=== PATIENT | male | born 1985 | race Caucasian/White ===

== ENCOUNTER 2021-06-02 13:53 | Observation (INO) | payer OTHER, SELFPAY ==
--- NOTE | ~2021-06-02 | MR_ITS ---
EXAMINATION: MR hand RT wo con DATE: 06/03/2021 12:19 INDICATION: Cellulitis at the right hand TECHNIQUE: Magnetic resonance imaging (MRI) of the right hand was performed without intravenous contr ast to include the metacarpals and digits and which excludes the proximal carpal row. Coronal T1-weig hted FSE and T2-weighted FS FSE sequences were obtained before the patient terminated the study prior to obtaining the planned axial and sagittal sequences. COMPARISON: Radiograph dated 06/02/2021 FINDINGS: There is subcutaneous edema along the dorsal aspect of the ulnar side of the hand. No abscess. Bone a lignment is normal. Normal bone marrow signal throughout with no fracture, osteolysis or other pathol ogic marrow replacing process. Joint spaces appear normal. No joint effusions to suggest a septic art hritis. Intrinsic musculature of the hand appears unremarkable. Collateral ligament complex at the me tacarpophalangeal joints and interphalangeal joints are normal. The flexor and extensor tendons appea r normal however are suboptimally evaluated in the absence of axial and sagittal imaging. IMPRESSION: 1. No abscess, osteomyelitis or joint effusion to suggest septic arthritis. 2. Limited study which was terminated prematurely by the patient prior to obtaining axial or sagittal imaging. Reviewed, dictated and finalized at location B. IMPRESSION: 1. No abscess, osteomyelitis or joint effusion to suggest septic arthritis. 2. Limited study which was terminated prematurely by the patient prior to obtai no axial or sagittal imaging.
--- NOTE | ~2021-06-02 | XR_ITS ---
EXAMINATION: XR hand RT min 3V DATE: 06/02/2021 15:21 INDICATION: Right hand fifth digit injury with infection. TECHNIQUE: 3 views of right hand were obtained. COMPARISON: None. FINDINGS: Bone alignment is normal. No fracture. Joint spaces are well maintained. There is soft tiss ue swelling of the fifth digit. No radiopaque foreign body. IMPRESSION: 1. No evidence of osteomyelitis. Reviewed, dictated and finalized at location A.
[2021-06-02 13:55] VITALS: BP 149/80; PULSE 100; RESP 18; TEMP 37.3; O2SAT 100
--- NOTE | 2021-06-02 14:56 | ED.GENADULT ---
HPI - General Adult General Chief complaint: Unspecified Stated complaint: i think i have an infection Time Seen by Provider: 06/02/21 14:54 History of Present Illness HPI narrative: healthy 36 yo male presents [facility] ED c/o infection. He reports that he had a fishhook injury to his right little finger 2 days ago. Since that time he has developed pain and swelling in the finger, erythema tracking up the forearm, lymphadenopathy, chills, and body aches. No cough, congestion, nausea, vomiting, fever. Related Data Home Medications Medication Instructions Recorded Confirmed sertraline 50 mg PO DAILY 06/02/21 06/02/21 Allergies Allergy/AdvReac Type Severity Reaction Status Date / Time No Known Allergies Allergy Verified 06/02/21 15:35 Review of Systems Review of Systems: All systems reviewed & are unremarkable except as noted in HPI and below Cardiovascular: Cardiovascular: Denies chest pain Respiratory: Respiratory: Denies dyspnea Genitourinary: Genitourinary: Reports no additional male genitourinary complaints Musculoskeletal: Musculoskeletal: Reports myalgias Neurologic: Denies weakness PMFSH Social History Social History Smoking status: Never smoker Alcohol intake: current Drinks per week: 1 Substance use: never Gender identity (if verbalized by the patient): Male Spiritual care concerns: No Exam Const: General: no acute distress, alert and uncomfortable Nutritional Appearance: well nourished Orientation/consciousness: patient oriented x3 HENMT: Head: normal to inspection Neck: Neck: normal visual inspection Chest: Chest palpation & inspection: no tenderness Resp: Effort & Inspection: normal respiratory effort Auscultation: clear to auscultation bilaterally, no rales, no rhonchi and no wheezes Cardio: Jugular venous distension: no JVD Rate: regular rate Rhythm: regular rhythm Heart sounds: no murmurs GI: Inspection: non-distended GI Palp: Yes Soft to palpation and No Tenderness to palpation present (GI) Skin: Other: healing wound to distal right little finger with underlying fluctuance, surrounding erythema and tenderness. Erythematous band to mid forearm. Neuro: General: patient oriented x3 and moves all extremities Cognition (Neuro): normal cognition Speech: normal speech Motor exam (neuro): 5/5 motor strength present throughout Sensory Exam: normal sensation Extrem: General: no edema Right upper extremity: full ROM Psych: Appearance: well kempt Affect: normal affect Course Vital Signs Vital signs: Vital Signs Temperature 37.3 C 06/02/21 13:55 Pulse Rate 100 06/02/21 13:55 Respiratory Rate 18 06/02/21 13:55 Blood Pressure 149/80 H 06/02/21 13:55 Pulse Oximetry 100 06/02/21 13:55 Temperature 37.6 C 06/03/21 06:00 Pulse Rate 69 06/03/21 06:00 Respiratory Rate 20 06/03/21 06:00 Blood Pressure 134/55 L 06/03/21 06:00 Pulse Oximetry 99 06/03/21 06:00 Procedures Abscess I/D upper extremity: Date of Incision: 06/02/21 Side (if applicable): right (little finger) Local Anesthetic: lidocaine 1% Amount of anesthesia used (mL): 5 Technique: incised with #11 blade Amount of fluid expressed (mL): 1 Packing used?: none I&D Results: Other (turbid fluid) Medical Decision Making MDM Narrative Medical decision making narrative: I &D produced turbid fluid, no kayla pus. Exam concerning for serious infection. Not septic. Medical Records Medical records reviewed: Yes I reviewed the external patient's medical records. Vital Signs Vital Signs: Vital Signs Temperature 37.3 C 06/02/21 13:55 Pulse Rate 100 06/02/21 13:55 Respiratory Rate 18 06/02/21 13:55 Blood Pressure 149/80 H 06/02/21 13:55 Pulse Oximetry 100 06/02/21 13:55 Temperature 37.6 C 06/03/21 06:00 Pulse Rate 69 06/03/21 06:00 Respiratory Rate
[2021-06-02 15:32] VITALS: BP 119/71; PULSE 84; PULSE 85; RESP 15; O2SAT 100
[2021-06-02] MEDS: KETOROLAC 30 MG/ML VIAL (*BKC) IV PUSH (15:36)
[2021-06-02 16:05] LABS: Basophils Percent Auto 0.2 % (0.2-1.2); Eosinophils Percent Auto 0.2 % (0-4.4); Hematocrit 38.9 % (42.0-52.0); Hemoglobin 13.4 g/dL (14.0-18.0); Immature Granulocyte Absolute 0.09 K/mm3 (0.00-0.031); Immature Granulocyte Percent A 0.5 % (0-0.5); Lymphocytes Absolute Auto 0.75 K/mm3 (0.9-3.2); Mean Corpuscular HGB Conc 34.4 g/dl (32-36); Mean Corpuscular Hemoglobin 29.8 pg (26-34); Mean Corpuscular Volume 86.4 fl (80-100); Mean Platelet Volume 9.2 fl (7.4-10.4); Monocytes Absolute Auto 1.1 K/mm3 (0.1-0.6); Neutrophils Absolute Auto 16.5 K/mm3 (1.3-6.7); Neutrophils Percent Auto 89.1 % (45.5-73.1); Platelet Count Result 219 k/mm3 (150-375); Red Cell Distribution Width 12.6 % (11.5-14.5); White Blood Count 18.6 K/mm3 (4.5-10.0)
[2021-06-02 16:13] LABS: Lactic Acid Reflex 1.8 mmol/L (0.7-2.1)
[2021-06-02 16:21] LABS: Alanine Aminotransferase 22 U/L (4-50); Albumin Level 4.6 g/dL (3.5-5.1); Alkaline Phosphatase 65 U/L (38-126); Anion Gap 9 mmol/L (8-16); Aspartate Amino Transferase 29 U/L (17-59); Bilirubin,Total 0.8 mg/dL (0.2-1.3); Blood Urea Nitrogen 15 mg/dL (9-20); Calcium 9.6 mg/dL (8.4-10.2); Carbon Dioxide 25 mmol/L (22-30); Chloride 100 mmol/L (98-107); Estimated CRCL calculation 117 ml/min; Estimated Glomerular Filt Rate > 60; Glucose 104 mg/dL (65-110); Potassium 3.8 mmol/L (3.4-5.0); Sodium 134 mmol/L (137-145)
[2021-06-02 16:31] LABS: CRP 0.6 mg/dL (<1.0)
[2021-06-02 17:09] VITALS: BP 96/78; PULSE 74; RESP 20; O2SAT 100
[2021-06-02] MEDS: SODIUM CHLORIDE 0.9% IV 1,000 ML 999 ML IV CONT (17:12)
[2021-06-02] MEDS: MORPHINE SULFATE (*CRX) 2 MG/ML INJ IV PUSH (18:19)
[2021-06-02 19:24] VITALS: BP 120/73; PULSE 87; RESP 17; O2SAT 98
--- NOTE | 2021-06-02 19:48 | PM.IMHP ---
H&P: HPI History of Present Illness Date/Time: 06/02/21 19:48 Chief Complaint: Cellulitis of the hand Narrative: This is a 36 with no significant past medical history patient presented to the emergency room due to body aches chills patient had a fishhook injury to her right little finger 2 days prior to presentation to emergency room and he did not think much of it however as the hours progress he started feeling ill describes it as cold-like symptoms having muscular pain in chills and red lines tracking up his forearm on the right side swelling and pain of the 5th little finger of the right hand. Preliminary workup was significant for leukocytosis of 18,000. Hand x-ray did not show fractures. Review of Systems Review of Systems: Right little finger swelling and pain after fishhook injury Constitutional: Constitutional: Reports chills, Denies fatigue, Reports fever(s) and Reports malaise Eyes: Eyes: Denies change in vision ENT: Denies dysphagia, Denies nasal congestion, Denies nasal discharge, Denies nasal obstruction and Denies odynophagia Cardiovascular: Cardiovascular: Denies chest pain Respiratory: Respiratory: Denies cough Gastrointestinal: Gastrointestinal: Denies abdominal pain, Denies nausea and Denies vomiting Genitourinary: Genitourinary: Reports no additional male genitourinary complaints Musculoskeletal: Musculoskeletal: Reports arthralgias (Right little finger after fishhook injury) Integumentary/Breasts: Skin/Breast: Reports swelling, Reports change in pigmentation (Red is streaks up his forearm), Reports erythema and Reports skin swelling Neurologic: Reports system reviewed and no additional complaints, except as documented Psychiatric: Psychiatric: Reports no additional psychiatric complaints Endocrine: Endocrine: Reports no additional endocrine complaints Hematologic/Lymphatic: Hematologic/Lymphatic: Reports no additional hematologic/lymphatic complaints Allergic/Immunologic: Allergic/Immunologic: Reports no additional allergic/immunologic complaints PMFSH Social History Social History Gender identity (if verbalized by the patient): Male Meds Home Medications and Allergies Home Medications Medication Instructions Recorded Confirmed Type sertraline 50 mg PO DAILY 06/02/21 06/02/21 History Allergies Allergy/AdvReac Type Severity Reaction Status Date / Time No Known Allergies Allergy Verified 06/02/21 15:35 Vital Signs Vital Signs - 24 hr 06/02/21 13:55 06/02/21 15:32 06/02/21 17:09 Temperature 99.1 F Pulse Rate 100 85 74 Respiratory Rate 18 15 20 Blood Pressure 149/80 H 119/71 96/78 L Pulse Oximetry 100 100 100 06/02/21 19:24 Temperature Pulse Rate 87 Respiratory Rate 17 Blood Pressure 120/73 Pulse Oximetry 98 Exam Narrative: Patient is laying in bed Const: General: cooperative, comfortable, no acute distress, well developed, alert, awake and other (Well-appearing) Nutritional Appearance: average body habitus and well nourished Orientation/consciousness: patient oriented x3 HENMT: Head: normal to inspection, normocephalic and atraumatic Ears: hearing grossly normal bilaterally General nose exam: Normal external nose present Face and sinus: normal facial exam Mouth: Yes Normal oral and palatal mucosa present Eyes: General: appearance normal, both eyes and all related structures Alignment and Position: alignment normal Sclera: sclerae normal Pupils: Equal, round and reactive pupils present EOM: EOMs intact bilaterally Neck: Neck: normal visual inspection, full ROM, no lymphadenopathy, supple and no JVD Thyroid: thyroid normal Lymphatic: no lymphadenopathy noted Resp: Effort & Inspection: normal respiratory effort and able to speak in complete sentences Auscultation: clear to auscultation bilaterally Cardio: Jugular venous distension: no JVD Rate: regular rate Rhythm: regular rhythm Heart so
--- NOTE | 2021-06-02 19:55 | ADMGEN ---
This patient, Pranav Wu, was admitted to [facility] Surg Room 321-02. Patient/family oriented to hospital policies and general routines including ID bracelet, bed and alarms, visiting hours, pain management, procedures, bathroom and other care routines, personal items, smoking policy, room service/diet, and visiting hours. Information on how to activate the Rapid Response Team has been discussed. Patient/Family are encouraged to report perceived risks to care and to ask questions if they do not understand what they are told or what they should do.
[2021-06-02 22:00] VITALS: BP 128/76; PULSE 83; RESP 18; TEMP 37.9; O2SAT 99
[2021-06-02] MEDS: SODIUM CHLORIDE 0.9% IV 1,000 ML 125 ML IV CONT (22:09)
[2021-06-03] MEDS: KETOROLAC 15 MG/ML VIAL (*BKC) IV PUSH ×2 (01:10→13:31)
[2021-06-03] MEDS: ACETAMINOPHEN 500 MG TABLET 1000 MG PO (05:43)
[2021-06-03 06:00] VITALS: BP 134/55; PULSE 69; RESP 20; TEMP 37.6; O2SAT 99
[2021-06-03] MEDS: SODIUM CHLORIDE 0.9% IV 1,000 ML 125 ML IV CONT (07:29)
--- NOTE | 2021-06-03 08:49 | PM.IMPN ---
Progress Note: A&P Assessment and Plan (1) Abscess of right little finger: Code(s): L02.511 - Cutaneous abscess of right hand Status: Acute Assessment and Plan: Secondary to injury in which a fishhook pierced his skin into his right 5th digit S/p I&D in the ED which yielded turbid fluid, no pus. X-ray showed normal bone alignment and joints with soft tissue swelling of 5th digit, no evidence of osteomyelitis. MRI right hand is pending Consult to plastic surgeon Dr. Cagle. Input is appreciated Continue IV Ancef. Add Vancomycin Wound cultures pending from I&D Blood cultures pending Analgesics available as needed. He was febrile with Tmax 100.2. Fever and leukocytosis improving. Increased CRP. Tetanus booster and tetanus immune globulin ordered. His last vaccine was unknown. (2) Cellulitis of finger of right hand: Code(s): L03.011 - Cellulitis of right finger Status: Acute Assessment and Plan: See above. Subjective Date/time seen: 06/03/21 08:49 Interval history: Date of service: 06/03/2021 Pranav Wu is a healthy 36-year-old male who is seen in follow-up for abscess of the right 5th digit after an injury with a fishhook. He is feeling a lot better today. He had a very bad headache last night, some nausea, and just generally feeling unwell. This has all improved today. No fevers or chills. Continues to endorse pain in the right 5th digit all the way up the forearm extending to the elbow. He noted that there was some purple streaking going up his arm prior to presentation this has gone away. He denies nausea, vomiting, dizziness, lightheadedness, abdominal pain. No further fevers or chills. Denies muscle pain or body aches. No shortness of breath. No chest pain or palpitations. He is NPO today but had been eating and drinking well prior. He has no other concerns at this time. Review of Systems Review of Systems: All systems reviewed & are unremarkable except as noted in HPI and below Exam Narrative: Mr. Wu is a well-nourished, well-appearing 36-year-old male who is lying semi recumbent in bed. He appears comfortable and is in NARD. Neuro: awake, alert and oriented x4, speech clear, no focal neuro deficits noted HEENMT: normocephalic, atraumatic, EOMI, sclerae anicteric, moist oral mucosa Neck: supple, no lymphadenopathy Respiratory: clear to auscultation bilaterally, nonlabored breathing Cardio: regular rate, regular rhythm with S1-S2 Abdomen: nondistended, normoactive bowel sounds, soft, nontender to palpation Extremities: Right 5th digit is wrapped with dressing c/d/i. Right hand is minimally swollen and warm to palpation. Erythema on the lateral aspect of the hand with streaking up the lateral forearm to about 3[address] the elbow. He is able to make a fist, though unable to bend the 5th digit due to dressing and pain. Neurovascularly intact. Brisk capillary refill of bilateral upper extremities. Bilateral lower extremities no edema, erythema, or tenderness to palpation. DP pulses 2+ bilaterally Skin: Warm and slightly damp Psych: appropriate mood and affect, judgment and insight intact Objective Data Vital Signs Vital Signs: Vital Signs - 24 hr 06/02/21 13:55 06/02/21 15:32 06/02/21 17:09 Temperature 99.1 F Pulse Rate 100 85 74 Respiratory Rate 18 15 20 Blood Pressure 149/80 H 119/71 96/78 L Pulse Oximetry 100 100 100 06/02/21 19:24 06/02/21 22:00 06/03/21 06:00 Temperature 100.2 F H 99.6 F Pulse Rate 87 83 69 Respiratory Rate 17 18 20 Blood Pressure 120/73 128/76 134/55 L Pulse Oximetry 98 99 99 Intake/Output Intake/Output: Intake & Output 05/31/21 06/01/21 06/02/21 06/03/21 23:59 23:59 23:59 23:59 Intake Total 1250 1000 Balance 1250 1000 Meds/Results Medications: Active Medications Generic Name Dose Route Start Last Admin Trade Name Freq PRN Reason Stop Dose Admin Acetaminophen
[2021-06-03] MEDS: SERTRALINE HCL 50 MG TABLET PO (09:03)
[2021-06-03 10:21] LABS: Hematocrit 34.2 % (42.0-52.0); Hemoglobin 11.4 g/dL (14.0-18.0); Mean Corpuscular HGB Conc 33.3 g/dl (32-36); Mean Corpuscular Hemoglobin 28.7 pg (26-34); Mean Corpuscular Volume 86.1 fl (80-100); Mean Platelet Volume 9.1 fl (7.4-10.4); Platelet Count Result 186 k/mm3 (150-375); Red Blood Count 3.97 M/mm3 (4.6-6.20); Red Cell Distribution Width 12.6 % (11.5-14.5); White Blood Count 16.4 K/mm3 (4.5-10.0)
[2021-06-03 10:43] LABS: Anion Gap 4 mmol/L (8-16); Blood Urea Nitrogen 14 mg/dL (9-20); Calcium 8.4 mg/dL (8.4-10.2); Carbon Dioxide 25 mmol/L (22-30); Chloride 106 mmol/L (98-107); Estimated CRCL calculation 117 ml/min; Estimated Glomerular Filt Rate > 60; Glucose 104 mg/dL (65-110); Potassium 3.6 mmol/L (3.4-5.0); Sodium 135 mmol/L (137-145)
[2021-06-03 10:54] LABS: CRP 12.9 mg/dL (<1.0)
--- NOTE | 2021-06-03 12:12 | WPDCN ---
Assessment and Plan Assessment and plan (1) Cellulitis of finger of right hand: Code(s): L03.011 - Cellulitis of right finger Status: Acute Assessment and Plan: Cellulitis due to laceration by fish hook 2 days ago. 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 IV Levo probably good coverage. A second ABx might better be PO Bactrim than Ancef. Will switch. Will follow. No surgery planned for today. HPI Data of Consult Date/Time: 06/03/21 12:12 Requesting Physician: Raissa Lilly PA-C Primary Care Provider: UNKNOWN,DOCTOR Consult Narrative Narrative: Pranav Wu is a 36 year old male admitted last night with a 2 day history of worsening inflamation, pain and lymphangitis of his right little finger after sustaining a fish hook injury while fishing. He is admitted with a WBC of 18 K and lymphangitis and low grade fever of ~100*. CRP 12.9 Cultures are pending on blood and wound. X-ray without bone injury or FB. Antibiotics have been Levoquin from the ED and Cefazolin.added on the floor. He is immunocompetent. Has had Covid 19 and is vaccinated as well. [facility] Past Medical History Medical History (Updated 06/03/21 @ 13:04 by Lonnie Cagle MD) Cellulitis of finger of right hand Social History Social History Smoking status: Never smoker Alcohol intake: current Drinks per week: 1 Substance use: never Gender identity (if verbalized by the patient): Male Spiritual care concerns: No Meds Home Medications and Allergies Home Medications Medication Instructions Recorded Confirmed Type sertraline 50 mg PO DAILY 06/02/21 06/02/21 History Allergies Allergy/AdvReac Type Severity Reaction Status Date / Time No Known Allergies Allergy Verified 06/02/21 15:35 Vital Signs Vital Signs - 24 hr 06/02/21 13:55 06/02/21 15:32 06/02/21 17:09 Temperature 99.1 F Pulse Rate 100 85 74 Respiratory Rate 18 15 20 Blood Pressure 149/80 H 119/71 96/78 L Pulse Oximetry 100 100 100 06/02/21 19:24 06/02/21 22:00 06/03/21 06:00 Temperature 100.2 F H 99.6 F Pulse Rate 87 83 69 Respiratory Rate 17 18 20 Blood Pressure 120/73 128/76 134/55 L Pulse Oximetry 98 99 99 Exam Narrative: Small wound on the ulnar side of the right 5th finger. Moderate swelling of the finger especially dorsally. ! x 2 cm bulla of the dorsum. Nail not involved. Not especially tender over the flexor tendons. Erythema dorsally at the MPJ. Faint lymphangitis toward axilla. Pt says that is markedly fainter. The bulla was debrided by me today. Pt had been sent for MRI but could not tolerate positioning. Results Labs CBC & Chem 7: 06/03/21 09:47 06/03/21 09:47 Labs: Short CBC 06/02/21 06/03/21 Range/Units 15:43 09:47 WBC 18.6 H 16.4 H (4.5-10.0) K/mm3 Hgb 13.4 L 11.4 L (14.0-18.0) g/dL Hct 38.9 L 34.2 L (42.0-52.0) % Plt Count 219 186 (150-375) k/mm3 [facility] 06/02/21 06/03/21 15:43 09:47 Sodium 134 L 135 L Potassium 3.8 3.6 Chloride 100 106 Carbon Dioxide 25 25 BUN 15 14 Creatinine 0.80 0.80 Glucose 104 104 Calcium 9.6 8.4 Liver Function 06/02/21 Range/Units 15:43 Total Bilirubin 0.8 (0.2-1.3) mg/dL AST 29 (17-59) U/L ALT 22 (4-50) U/L Alkaline Phosphatase 65 (38-126) U/L Albumin 4.6 (3.5-5.1) g/dL
[2021-06-03] MEDS: HYDROcodone/acetaminophen (*CRX) 5-325 MG TABLET 1 TAB PO (12:45)
[2021-06-03 14:00] VITALS: BP 105/62; PULSE 77; RESP 14; TEMP 36.8; O2SAT 99
[2021-06-03] MEDS: TETANUS,DIPHTHERIA,AC PERTUSSIS ADULT (0.5 ML) BOOSTRIX IM (15:31)
[2021-06-03] MEDS: TETANUS IMMUNE GLOBULIN 250 UNITS/ML SYRINGE IM (15:32)
--- NOTE | 2021-06-03 19:00 | WPDPN ---
Progress Note: A&P Additional Plan Gradual resolution of inflammation. Abscess not apparent. Diet tonight. Will reevaluate in the a.m. Subjective Date/time seen: 06/03/21 19:00 Exam Narrative: Resting. Says hand is less tender. Temp 98. Lymphangitis resolved. Still pink around MPJ and dorsal finger. ROM less tender. Objective Data Vital Signs Vital Signs: Vital Signs - 24 hr 06/02/21 19:24 06/02/21 22:00 06/03/21 06:00 Temperature 100.2 F H 99.6 F Pulse Rate 87 83 69 Respiratory Rate 17 18 20 Blood Pressure 120/73 128/76 134/55 L Pulse Oximetry 98 99 99 06/03/21 14:00 Temperature 98.2 F Pulse Rate 77 Respiratory Rate 14 Blood Pressure 105/62 Pulse Oximetry 99 Intake/Output Intake/Output: Intake & Output 05/31/21 06/01/21 06/02/21 06/03/21 23:59 23:59 23:59 23:59 Intake Total 1250 1490 Balance 1250 1490 Meds/Results Medications: Active Medications Generic Name Dose Route Start Last Admin Trade Name Freq PRN Reason Stop Dose Admin Acetaminophen 1,000 mg 06/03/21 00:10 06/03/21 05:43 Acetaminophen 500 Mg Tablet PO 1,000 mg Q6H PRN Administration Mild Pain (1-3) or Fever Hydrocodone Bitart/Acetaminophen 1 tab 06/03/21 13:42 Hydrocodone/Acetaminophen (*Crx) 10-325 Mg Tablet PO Q6H PRN Pain Rated 7-10 Sodium Chloride 1,000 mls @ 75 mls/hr 06/02/21 17:10 06/03/21 09:03 Normal Saline Iv IV CONT 75 mls/hr .[id number] BLAKE Infusion Levofloxacin/Dextrose 750 mg in 150 mls @ 100 mls/hr 06/03/21 17:00 06/03/21 18:12 Levaquin 750 Mg/D5w 150 Ml IVPB 100 mls/hr Q24H BLAKE Administration Sertraline HCl 50 mg 06/03/21 09:00 06/03/21 09:03 Sertraline Hcl 50 Mg Tablet PO 50 mg DAILY BLAKE Administration Trimethoprim/Sulfamethoxazole 1 tab 06/03/21 21:00 Trimethoprim/Sulfamethoxazole 160-800 Mg Ds Tablet PO Q12HR BLAKE Radiology Results: ITS Impressions Hand X-Ray 06/02/21 15:25 IMPRESSION: 1. No evidence of osteomyelitis. Hand MRI 06/03/21 12:25 IMPRESSION: 1. No abscess, osteomyelitis or joint effusion to suggest septic arthritis. 2. Limited study which was terminated prematurely by the patient prior to obtaining axial or sagittal imaging. Labs Labs: Laboratory Results - last 24 hr 06/03/21 06/03/21 09:47 09:47 WBC 16.4 H RBC 3.97 L Hgb 11.4 L Hct 34.2 L MCV 86.1 MCH 28.7 MCHC 33.3 RDW 12.6 Plt Count 186 MPV 9.1 Sodium 135 L Potassium 3.6 Chloride 106 Carbon Dioxide 25 Anion Gap 4 L BUN 14 Creatinine 0.80 Estim Creat Clear Calc 117 Estimated GFR > 60 Glucose 104 Calcium 8.4 C-Reactive Protein 12.9 H Quality VTE Prophylaxis VTE prophylaxis: mechanical ordered
[2021-06-03] MEDS: HYDROcodone/acetaminophen (*CRX) 10-325 MG TABLET 1 TAB PO (19:45)
[2021-06-03 22:00] VITALS: BP 145/73; PULSE 60; RESP 20; TEMP 36.7; O2SAT 99
[2021-06-04] MEDS: ACETAMINOPHEN 500 MG TABLET 1000 MG PO (01:39)
[2021-06-04] MEDS: SODIUM CHLORIDE 0.9% IV 1,000 ML 75 ML IV CONT (01:46)
[2021-06-04] MEDS: HYDROcodone/acetaminophen (*CRX) 10-325 MG TABLET 1 TAB PO (05:41)
[2021-06-04 06:00] VITALS: BP 132/56; PULSE 54; RESP 20; TEMP 37.4; O2SAT 97
[2021-06-04 06:45] LABS: Basophils Percent Auto 0.2 % (0.2-1.2); Eosinophils Absolute Auto 0.3 K/mm3 (0-0.3); Hematocrit 33.4 % (42.0-52.0); Hemoglobin 11.3 g/dL (14.0-18.0); Immature Granulocyte Absolute 0.06 K/mm3 (0.00-0.031); Immature Granulocyte Percent A 0.5 % (0-0.5); Lymphocytes Absolute Auto 3.08 K/mm3 (0.9-3.2); Lymphocytes Percent Auto 24.3 % (18.3-44.2); Mean Corpuscular HGB Conc 33.8 g/dl (32-36); Mean Corpuscular Hemoglobin 29.5 pg (26-34); Mean Corpuscular Volume 87.2 fl (80-100); Mean Platelet Volume 9.2 fl (7.4-10.4); Monocytes Absolute Auto 1.1 K/mm3 (0.1-0.6); Neutrophils Absolute Auto 8.1 K/mm3 (1.3-6.7); Platelet Count Result 164 k/mm3 (150-375); Red Blood Count 3.83 M/mm3 (4.6-6.20); Red Cell Distribution Width 12.7 % (11.5-14.5); White Blood Count 12.7 K/mm3 (4.5-10.0)
[2021-06-04 07:11] LABS: Anion Gap 7 mmol/L (8-16); Blood Urea Nitrogen 13 mg/dL (9-20); Calcium 8.5 mg/dL (8.4-10.2); Carbon Dioxide 25 mmol/L (22-30); Chloride 103 mmol/L (98-107); Estimated CRCL calculation 117 ml/min; Estimated Glomerular Filt Rate > 60; Glucose 103 mg/dL (65-110); Potassium 3.5 mmol/L (3.4-5.0); Sodium 135 mmol/L (137-145)
--- NOTE | 2021-06-04 07:54 | WPDPN ---
Progress Note: A&P Assessment and Plan (1) Cellulitis of finger of right hand: Code(s): L03.011 - Cellulitis of right finger Status: Acute Assessment and Plan: Improving on current regime. Should be ok for discharge on Bactrim and a few hydrocodone 5/325 (6). Return to work on Thursday. F/U with Dr Cagle on Thursday. Dressing daily with silver gel and gauze. Normal washing. Requests digital aluminum splint. Time Spent With Patient Time with patient: less than 15 minutes Subjective Date/time seen: 06/04/21 07:54 Hand much less tender. Limited ROM is due to swelling and not pain. Exam Narrative: No lymphangitis. Dorsal hand is slightly pink. Deepithelialized distal phalanx is not draining and is dry. Still some discolored wound margins but nothing worse than yesterday. WBC ~12. CRP pending. Cultures pending. Day 3 levofloxacin. Day 2 Bactrim. Objective Data Vital Signs Vital Signs: Vital Signs - 24 hr 06/03/21 14:00 06/03/21 22:00 06/04/21 06:00 Temperature 98.2 F 98.1 F 99.3 F Pulse Rate 77 60 54 L Respiratory Rate 14 20 20 Blood Pressure 105/62 145/73 H 132/56 L Pulse Oximetry 99 99 97 Intake/Output Intake/Output: Intake & Output 06/01/21 06/02/21 06/03/21 06/04/21 23:59 23:59 23:59 23:59 Intake Total 1250 2810 500 Output Total 1050 700 Balance 1250 1760 -200 Meds/Results Medications: Active Medications Generic Name Dose Route Start Last Admin Trade Name Freq PRN Reason Stop Dose Admin Acetaminophen 1,000 mg 06/03/21 00:10 06/04/21 01:39 Acetaminophen 500 Mg Tablet PO 1,000 mg Q6H PRN Administration Mild Pain (1-3) or Fever Hydrocodone Bitart/Acetaminophen 1 tab 06/03/21 13:42 06/04/21 05:41 Hydrocodone/Acetaminophen (*Crx) 10-325 Mg Tablet PO 1 tab Q6H PRN Administration Pain Rated 7-10 Sodium Chloride 1,000 mls @ 75 mls/hr 06/02/21 17:10 08/24/21 01:46 Normal Saline Iv IV CONT 75 mls/hr .[id number] BLAKE Administration Levofloxacin/Dextrose 750 mg in 150 mls @ 100 mls/hr 06/03/21 17:00 06/03/21 19:42 Levaquin 750 Mg/D5w 150 Ml IVPB Infused Q24H BLAKE Infusion Sertraline HCl 50 mg 06/03/21 09:00 06/03/21 09:03 Sertraline Hcl 50 Mg Tablet PO 50 mg DAILY BLAKE Administration Silver Nitrate 1 applic 06/04/21 09:00 Silvergel (Elta) 45 Ml TOPICAL DAILY BLAKE Trimethoprim/Sulfamethoxazole 1 tab 06/03/21 21:00 06/03/21 21:26 Trimethoprim/Sulfamethoxazole 160-800 Mg Ds Tablet PO 1 tab Q12HR BLAKE Administration Radiology Results: ITS Impressions Hand X-Ray 06/02/21 15:25 IMPRESSION: 1. No evidence of osteomyelitis. Hand MRI 06/03/21 12:25 IMPRESSION: 1. No abscess, osteomyelitis or joint effusion to suggest septic arthritis. 2. Limited study which was terminated prematurely by the patient prior to obtaining axial or sagittal imaging. Labs Labs: Laboratory Results - last 24 hr 06/03/21 06/03/21 06/04/21 09:47 09:47 06:19 WBC 16.4 H 12.7 H RBC 3.97 L 3.83 L Hgb 11.4 L 11.3 L Hct 34.2 L 33.4 L MCV 86.1 87.2 MCH 28.7 29.5 MCHC 33.3 33.8 RDW 12.6 12.7 Plt Count 186 164 MPV 9.1 9.2 Immature Gran % (Auto) 0.5 Neut % (Auto) 64.0 Lymph % (Auto) 24.3 [place] % (Auto) 9.0 H Eos % (Auto) 2.0 Baso % (Auto) 0.2 Lymph # (Auto) 3.08 [place] # (Auto) 1.1 H Eos # (Auto) 0.3 Baso # (Auto) 0.0 Abs Immat Gran (auto) 0.06 H Absolute Neuts (auto) 8.1 H Absolute Nucleated RBC 0.0 Nucleated RBC % 0.0 Sodium 135 L Potassium 3.6 Chloride 106 Carbon Dioxide 25 Anion Gap 4 L BUN 14 Creatinine 0.80 Estim Creat Clear Calc 117 Estimated GFR > 60 Glucose 104 Calcium 8.4 C-Reactive Protein 12.9 H 06/04/21 06:19 WBC RBC Hgb Hct MCV MCH MCHC RDW Plt Count MPV Immature Gran % (Auto) Neut % (Auto) Lymph % (Auto) [place] % (Auto) Eos % (Aut
[2021-06-04] MEDS: SILVERGEL (ELTA) 45 ML 1 APPLIC TOPICAL (07:59)
[2021-06-04] MEDS: SERTRALINE HCL 50 MG TABLET PO (07:59)
--- NOTE | 2021-06-04 16:20 | PM.DS ---
DS: Admitting Diagnosis Admitting Diagnosis Cellulitis of the hand DS: Discharge Diagnosis Discharge Diagnosis (1) Abscess of right little finger: Code(s): L02.511 - Cutaneous abscess of right hand Status: Acute Assessment and Plan: Secondary to injury in which a fishhook pierced his skin into his right 5th digit S/p I&D in the ED . X-ray showed normal bone alignment and joints with soft tissue swelling of 5th digit, no evidence of osteomyelitis MRI right-->No abscess, osteomyelitis or joint effusion to suggest septic arthritis. Consult to plastic surgeon Dr. Cagle. Input is appreciated S/p IV Ancef, Vancomycin, levaquin Wound cultures GPC Blood cultures NGTD Analgesics available as needed Afebrile Tetanus booster and tetanus immune globulin ordered, last vaccine was unknown. (2) Cellulitis of finger of right hand: Code(s): L03.011 - Cellulitis of right finger Status: Acute Assessment and Plan: See above. DS: Summary Hospital Course Hospital Course: Mr. Wu is a 36 year old man with no significant past medical history. Patient presented to the emergency room due to body aches chills. Patient had a fishhook injury to her right little finger 2 days prior to presentation to emergency room and he did not think much of it however as the hours progress he started feeling ill. He reported symptoms having muscular pain in chills and red lines tracking up his forearm on the right side swelling and pain of the 5th little finger of the right hand. Preliminary workup was significant for leukocytosis of 18,000. Hand x-ray did not show fractures. He underwent I&D in the ED and wound cultures were obtained. MRI showed no abscess, osteomyelitis of joint effusion. Dr. Cagle was consulted and surgical intervention was needed. The patient has been discharged on Bactrim and will follow up with Dr. Cagle on Thursday. Time Spent with Patient Time attestation: Total time spent providing and/or coordinating discharge services: Time spent: Greater than 30 minutes Exam Const: General: no acute distress, alert and awake Orientation/consciousness: patient oriented x3 HENMT: Head: normocephalic and atraumatic Ears: hearing grossly normal bilaterally and external ears normal Face and sinus: face symmetric Mouth: Yes Normal oral and palatal mucosa present Eyes: EOM: EOMs intact bilaterally Neck: Neck: full ROM and trachea midline Chest: Chest palpation & inspection: normal inspection of the chest Resp: Effort & Inspection: normal respiratory effort Auscultation: clear to auscultation bilaterally Cardio: Rate: regular rate Heart sounds: S1 normal heart sound present and S2 normal heart sound present GI: Inspection: normal to inspection GI Palp: Yes Soft to palpation Percussion: Yes normal to percussion Auscultation: normal bowel sounds : General: Yes no CVA tenderness Back/Spine/Pelvis: Back: no CVA tenderness Skin: General skin exam: normal color Rashes: no rashes Other: dressing to right fifth digit CDI with splint Neuro: General: patient oriented x3 and CN's II-XI intact bilaterally Cranial nerves: Yes Equal, round and reactive pupils present Speech: normal speech Psych: Appearance: grossly normal Affect: normal affect Judgement: Good judgement present (Psych) DS: Data Data Completed and Pending Labs on day of discharge: Labs from last 24 hours 06/04/21 06/04/21 06:19 06:19 WBC 12.7 H RBC 3.83 L Hgb 11.3 L Hct 33.4 L MCV 87.2 MCH 29.5 MCHC 33.8 RDW 12.7 Plt Count 164 MPV 9.2 Immature Gran % (Auto) 0.5 Neut % (Auto) 64.0 Lymph % (Auto) 24.3 [place] % (Auto) 9.0 H Eos % (Auto) 2.0 Baso % (Auto) 0.2 Lymph # (Auto) 3.08 [place] # (Auto) 1.1 H Eos # (Auto) 0.3 Baso # (Auto) 0.0 Abs Immat Gran (auto) 0.06 H Absolute Neuts (auto) 8.1 H Absolute Nucleated RBC 0.0 Nucleated RBC % 0.0 Sodium 135 L Potassium
== END 2021-06-04 12:25 | disposition home or self-care (01) ==
LOC: ANHED 17:29 → ANH3MEDSUR 18:50
PROVIDERS: Physician Assistant; Admitting Provider Internal Medicine Nephrology; Emergency Provider Emergency Medicine; PCP Family Medicine Sports Medicine; Visit Provider Internal Medicine
DX: L03.011 Cellulitis of right finger (principal); W45.8XXA Other foreign body or object entering through skin, initial encounter
CPT/HCPCS: 10060; 36415; 73130; 73218; 80048; 80053; 83605; 85025; 85027; 86140; 87040; 87070; 87077; 87205; 90715; 96361; 96365; 96366; 96367; 96368; 96375; 96376; 99285; A9270; G0378; J0690; J1670; J1885; J1956; J2270; J3370; J7030

== ENCOUNTER 2023-02-15 15:58 | Emergency (ER) | payer OTHER, SELFPAY ==
--- NOTE | ~2023-02-15 | XR_ITS ---
EXAMINATION: XR ankle LT min 3V DATE: 02/15/2023 17:57 INDICATION: Left ankle injury and pain. TECHNIQUE: 4 views of left ankle were obtained. COMPARISON: None. FINDINGS: Bone alignment is normal. No fracture. Joint spaces are well maintained. IMPRESSION: 1. Normal left ankle. Reviewed, dictated and finalized at location A. IMPRESSION: 1. Normal left ankle.
[2023-02-15 16:06] VITALS: BP 160/85; PULSE 124; RESP 20; TEMP 37.1; O2SAT 100
--- NOTE | 2023-02-15 17:29 | ED.LOWEXIN ---
HPI - Extremity Injury (Lower) General Chief Complaint: Extremity Injury, Lower Stated Complaint: ruptured my achilles tendon Time Seen by Provider: 02/15/23 17:10 Source: patient Mode of arrival: ambulatory Limitations: no limitations History of Present Illness HPI Narrative: Patient is a 37-year-old male who presents the ED with report of L ankle/heel/calf pain. Patient reports he was playing basketball this afternoon around 3:30 PM when he went to pivot and felt and heard an intense pop in his left posterior ankle/calf. He developed severe pain and burning in his left posterior heel/ankle/calf and was unable to ambulate afterwards. Denies any numbness or tingling. Denies any other injuries. He has not taken anything for pain. Related Data Home Medications Medication Instructions Recorded Confirmed sertraline 50 mg tablet 50 mg PO DAILY 06/02/21 06/02/21 Allergies Allergy/AdvReac Type Severity Reaction Status Date / Time No Known Allergies Allergy Verified 06/02/21 15:35 Review of Systems Review of Systems: CONSTITUTIONAL: Denies fever, chills, or sweats. MUSCULOSKELETAL: See HPI. NEUROLOGIC: Denies tingling, numbness, or weakness. All systems reviewed & are unremarkable except as noted in HPI and below PMFSH Past Medical History Medical History Cellulitis of finger of right hand Surgical History Surgical History No pertinent past surgical history Social History Social History Smoking status: Never smoker Alcohol intake: current Drinks per week: 1 Substance use: never Gender identity (if verbalized by the patient): Male Spiritual care concerns: No Exam Narrative: GENERAL: Well appearing, well-nourished, non-toxic, in mild acute distress due to pain. HEAD: Normocephalic, atraumatic. NECK: Supple. No adenopathy, no masses. RESPIRATORY: Airway patent, respirations nonlabored. Clear to auscultation bilaterally, no rales, rhonchi, wheezing. CARDIOVASCULAR: Regular rate and rhythm without murmurs, rubs, or gallops. Pedal pulses 2+ and equal bilaterally. MUSCULOSKELETAL: Limited plantar and dorsiflexion of right ankle due to pain. Swelling and bruising noted to L posterior heel/ankle, inferior Achilles region. Significant tenderness to palpation in left mid to lower posterior calf. No palpable tendon deformity. No movement/plantarflexion seen whatsoever with Rodriguez test. Intact on right leg. Sensation intact. No significant tenderness to medial or lateral malleoli of left ankle. SKIN: Warm, dry, normal color. No rashes. NEURO: A&O X3. Speech clear. Cranial nerves II-XII grossly intact. No ataxic movements. PSYCHIATRIC: Appropriate mood and affect. Normal interaction. Course Vital Signs Vital signs: Vital Signs Temperature 98.8 F 02/15/23 16:06 Pulse Rate 124 H 02/15/23 16:06 Respiratory Rate 20 02/15/23 16:06 Blood Pressure 160/85 H 02/15/23 16:06 Pulse Oximetry 100 02/15/23 16:06 Oxygen Delivery Room Air 02/15/23 16:06 Temperature 98.8 F 02/15/23 16:06 Pulse Rate 124 H 02/15/23 16:06 Respiratory Rate 20 02/15/23 16:06 Blood Pressure 160/85 H 02/15/23 16:06 Pulse Oximetry 100 02/15/23 16:06 Oxygen Delivery Room Air 02/15/23 16:06 MDM - Extremity Injury (Lower) MDM Narrative Medical decision making narrative: Patient presented to ED with heel/ankle/calf pain after pivoting while playing basketball and hearing a pop. Patient tachycardic and hypertensive upon arrival, likely r/t pain. Exam consistent with Achilles tendon rupture. No movement seen with calf squeeze/Rodriguez test. X-ray of left ankle negative. Discussed case with Dr. Alejandre, will follow in office for further evaluation and management. Patient placed in short leg posterior splint. Giv
[2023-02-15] MEDS: HYDROcodone/acetaminophen (*CRX) 5-325 MG TABLET 1 TAB PO (17:35)
[2023-02-15] MEDS: KETOROLAC (*BKC) 60 MG/2 ML VIAL IM (17:35)
--- NOTE | 2023-02-15 19:44 | PC.NURSE ---
Splint applied to left leg. PMS intact prior and post placement of splint. Patient given crutches and crutch training as well.
== END 2023-02-15 19:44 | disposition home or self-care (01) ==
LOC: ANHED 17:59
PROVIDERS: Emergency Provider Physician Assistant; PCP Family Medicine Sports Medicine
DX: S86.012A Strain of left Achilles tendon, initial encounter (principal); X50.9XXA Other and unspecified overexertion or strenuous movements or postures, initial encounter; Y93.67 Activity, basketball
CPT/HCPCS: 29515; 73610; 96372; 99283; A9270; J1885

== ENCOUNTER → 2023-02-23 14:26 | Outpatient (CLI) | payer OTHER, SELFPAY ==
--- NOTE | ~2023-02-23 | MR_ITS ---
EXAMINATION: MR ankle LT wo con DATE: 02/23/2023 15:29 INDICATION: Achilles tendon strain TECHNIQUE: Magnetic resonance imaging (MRI) of the left ankle was performed without intravenous contr ast. Sequences included sagittal, coronal, and axial proton-density weighted fast spin echo without a nd with fat saturation. COMPARISON: Left ankle radiographs dated 02/15/2023 FINDINGS: Medial ankle ligaments: Deep and superficial deltoid ligaments as well as the spring ligament are normal. Lateral ankle ligaments: The anterior and posterior inferior tibiofibular ligaments are normal. The anterior talofibular, calc aneofibular and posterior talofibular ligaments are normal. Tendons: Moderate Achilles tendinosis. Full-thickness tear located 9 cm proximal to the calcaneal insertion wi th 1.5 cm proximal retraction of the frayed tear margin. The adjacent plantaris tendon remains normal . The peroneus longus and brevis tendons are normal. The tibialis anterior and extensor hallucis long us and extensor digitorum longus tendons are normal. The tibialis posterior, flexor digitorum longus and flexor hallucis longus tendons are normal. Plantar fascia: Plantar aponeurosis is normal. Bones/other: Bone alignment is normal. Normal bone marrow signal throughout. No reactive edema, fracture or pathol ogic marrow replacing process. Joint spaces are normal. There are a few small foci of susceptibility artifact centered at the level of the skin surface along the dorsolateral aspect of the midfoot and a t the plantar aspect of the heel. Fluid: There is a small ankle joint effusion which mildly distends the lateral side of the anterior recess. No other joint effusions. There is small amount of fluid potentially hematoma at the Achilles tendon tear defect. Prominent more diffuse subcutaneous edema about the visualized distal calf, ankle and ex tending into the visualized mid foot. IMPRESSION: 1. Moderate Achilles tendinosis with full-thickness tear approximately 9 cm from its insertion and 1. 5 cm proximal retraction. Reviewed, dictated and finalized at location A. IMPRESSION: 1. Moderate Achilles tendinosis with full-thickness tear approximately 9 cm fro m its insertion and 1.5 cm proximal retraction.
== END ==
PROVIDERS: PCP Family Medicine Sports Medicine; Visit Provider Orthopaedic Surgery
DX: S86.012D Strain of left Achilles tendon, subsequent encounter (principal); X58.XXXD Exposure to other specified factors, subsequent encounter
CPT/HCPCS: 73721